=== PATIENT | female | born 1970 | race Caucasian/White ===

== ENCOUNTER → 2017-07-31 16:44 | Outpatient (CLI) | payer MEDICAID ==
[2014-04-26 19:59] VITALS: BMI 29.8
[~2017-07-31 16:44] MED LIST: ESTRACE1 MG PO; IPRAT-ALBUT 0.5-3 ML UPD; MEDROL DOSE PACK4 MG PO; PEPCID40 MG PO; PROVENTIL HFA6.7 GM INH; XANAX0.5 MG PO; ZPAK PO
== END | disposition home or self-care (01) ==
LOC: D.MAMMO 14:00
DX: N64.4 Mastodynia (principal)

== ENCOUNTER 2017-10-19 22:02 | Observation (INO) | payer OTHER ==
[~2017-10-19] VITALS: Ht 170.2 cm; Wt 91.3 kg
[2017-10-19 22:42] LABS: BASOPHILS 0.6 % (0-2); EOSINOPHILS 4.2 % (0-7); HEMATOCRIT 36.9 % (36.0-48.0); HEMOGLOBIN 12.6 g/dL (12-16); IMMATURE GRANULOCYTES 0.1 % (0-5); LYMPHOCYTES 54.3 % (15-50); MCH 29.9 pg (26.0-34.0); MCHC 34.1 g/dL (31.0-37.0); MCV 87.4 fL (80.0-100.0); MEAN PLATELET VOLUME 9.9 fL (7.4-10.4); NEUTROPHILS 33.8 % (40-80); PLATELET COUNT 294 10x3/uL (130-400); RBC 4.22 10x6/uL (4.00-5.40); RDW 12.7 % (11.5-14.5); WBC 9.4 10x3/uL (4.8-10.8)
[2017-10-19 22:52] LABS: ALBUMIN 3.7 g/dL (3.4-5.0); ANION GAP 13.5 mmol/L (8-16); BILIRUBIN - TOTAL 0.26 mg/dL (0.2-1.3); CALCIUM 8.8 mg/dL (8.5-10.1); CARBON DIOXIDE 26.8 mmol/L (21.0-32.0); CREATININE - SERUM 0.9 mg/dL (0.6-1.3); POTASSIUM - SERUM 3.3 mmol/L (3.5-5.1); PROTEIN - SERUM 7.1 g/dL (6.4-8.2)
[2017-10-20 00:27] LABS: TROPONIN-I 0.018 ng/mL (0.000-0.060)
[2017-10-20] MEDS ORDERED: ASPIRIN325 MG PO (01:57)
[2017-10-20] MEDS ORDERED: FISH OIL 1,0001 CA1 PO (01:57)
[2017-10-20] MEDS ORDERED: MULTIPLE VITAMI1 TA1 PO (01:57)
[2017-10-20 02:06] VITALS: BP 147/77; Ht 170.2 cm; Wt 91.3 kg
[2017-10-20 04:30] VITALS: BP 117/58
[2017-10-20 07:13] LABS: CKMB 1.7 U/L (0.0-3.6); CREATINE KINASE 74 UL (21-215); TROPONIN-I < 0.017 ng/mL (0.000-0.060)
[2017-10-20 08:59] VITALS: BP 138/78
[2017-10-20] MEDS ORDERED: COZAAR25 MG PO (10:19)
[2017-10-20 10:53] LABS: CKMB 1.5 U/L (0.0-3.6); CREATINE KINASE 82 UL (21-215); TROPONIN-I < 0.017 ng/mL (0.000-0.060)
== END 2017-10-20 11:06 | disposition home or self-care (01) ==
LOC: D.ER 22:02 → D.M2 10-20 00:49 → OBSVTIME 10-20 00:49 → D.EDHOLD 10-20 00:49 → D.M2 10-20 00:56
PROVIDERS: Emergency Medicine
DX: I10 Essential (primary) hypertension (principal); Z86.73 Personal history of transient ischemic attack (TIA), and cerebral infarction without residual deficits; J45.909 Unspecified asthma, uncomplicated; E78.5 Hyperlipidemia, unspecified; R51 Headache; Z87.891 Personal history of nicotine dependence

== ENCOUNTER 2018-01-15 12:42 | Emergency (ER) | payer OTHER ==
[~2018-01-15] VITALS: Ht 170.2 cm; Wt 90.9 kg
[~2018-01-15 12:42] MED LIST changes: +ASPIRIN325 MG PO; +COZAAR25 MG PO; +FISH OIL 1,0001 CA1 PO; +MULTIPLE VITAMI1 TA1 PO
[2018-01-15 13:03] VITALS: Ht 170.2 cm; Wt 90.9 kg
[2018-01-15] MEDS ORDERED: ATIVAN0.5 MG PO (13:06)
[2018-01-15] MEDS ORDERED: CATAPRES0.1 MG PO (13:07)
[2018-01-15 13:51] LABS: HEMOGLOBIN 12.6 g/dL (12-16); MCH 29.6 pg (26.0-34.0); MCHC 34.1 g/dL (31.0-37.0); MCV 87.1 fL (80.0-100.0); MEAN PLATELET VOLUME 9.9 fL (7.4-10.4); PLATELET COUNT 305 10x3/uL (130-400); RBC 4.25 10x6/uL (4.00-5.40); WBC 8.8 10x3/uL (4.8-10.8)
[2018-01-15 14:03] LABS: APPEARANCE CLEAR (CLEAR); BILIRUBIN NEGATIVE (NEGATIVE); COLOR STRAW (YELLOW); GLUCOSE NEGATIVE (NEGATIVE); KETONE NEGATIVE (NEGATIVE); NITRITE NEGATIVE (NEGATIVE); PROTEIN NEGATIVE (NEGATIVE); UROBILINOGEN NORMAL (NORMAL)
[2018-01-15 14:21] LABS: LYMPHOCYTES 17 % (15-50); MONOCYTES 6 % (2-11); NEUTROPHILS 43 % (40-80); PLATELET ESTIMATE NORMAL
[2018-01-15 14:53] LABS: ALBUMIN 3.6 g/dL (3.4-5.0); ALKALINE PHOSPHATASE 89 U/L (46-116); ALT (SGPT) 31 U/L (10-68); AMYLASE - SERUM 42 U/L (25-115); CALC OSMOLALITY 276 mosm/kg (275-300); CALCIUM 9.2 mg/dL (8.5-10.1); CARBON DIOXIDE 26.5 mmol/L (21.0-32.0); CHLORIDE - SERUM 105 mmol/L (98-107); CREATININE - SERUM 0.8 mg/dL (0.6-1.3); GLUCOSE 88 mg/dL (74-106); LIPASE 110 U/L (73-393); POTASSIUM - SERUM 3.7 mmol/L (3.5-5.1); PROTEIN - SERUM 7.1 g/dL (6.4-8.2); SODIUM 140 mmol/L (136-145); UREA NITROGEN 11 mg/dL (7-18); eGFR NON AFRICAN AMERICAN 81 mL/min (90-120)
[2018-01-15] MEDS ORDERED: ROBAXIN500 MG PO (18:19)
[2018-01-15] MEDS ORDERED: PHENERGAN6.25 MG/5 PO (18:20)
[2018-01-15 19:03] VITALS: BP 126/84
== END 2018-01-15 18:53 | disposition home or self-care (01) ==
LOC: D.ER 12:42
PROVIDERS: Family Medicine
DX: R10.9 Unspecified abdominal pain (principal); R19.4 Change in bowel habit; R11.0 Nausea

== ENCOUNTER 2018-01-31 18:20 | Observation (INO) | payer OTHER ==
[~2018-01-31] VITALS: Ht 170.2 cm; Wt 92.7 kg
--- NOTE | ~2018-01-31 | OP ---
PATIENT NAME: GALILEO PAYNE MEDICAL RECORD: [id number] :[birth year] LOCATION:D.M2 D.2122 ADMISSION DATE:01/31/18 SURGEON: REJI HINDS MD DATE OF OPERATION: 02/01/2018 PROCEDURES: 1. Left heart catheterization. 2. Selective coronary angiography. 3. Left ventriculogram. 4. Intravascular ultrasound. INDICATION: Angina and coronary artery disease. PROCEDURE IN DETAIL: After informed consent was obtained and after a detailed description of risks, benefits as well as alternative therapies, the patient elected to proceed with angiogram and heart catheterization. The right radial area was prepped and draped in normal sterile fashion. Right radial artery was cannulated via modified Seldinger technique with placement of 6-Lithuanian sheath. All catheters exchanged through this sheath. FINDINGS: The left ventriculogram was performed in standard 30-degree BEASLEY view, reveals good cardiac wall motion throughout all segments. Overall ejection fraction estimated 60%. SELECTIVE CORONARY ANGIOGRAPHY: 1. Left main showed no significant angiographic disease. 2. Left anterior descending has an area of mild stenosis in the mid vessel; however, intravascular ultrasound reveals this is no greater than 30%. 3. Left circumflex has moderate irregularities, but no flow-limiting stenosis. 4. Right coronary has moderate irregularities, but no flow-limiting stenosis. OVERALL IMPRESSION: Minimal coronary artery disease is present. No flow-limiting stenosis. Continue medical management of the coronary artery disease and cardiac risk factors. TRANSINT:[id number] Voice Confirmation ID: [id number] DOCUMENT ID: [id number] REJI HINDS MD at 1713 CC: [id number] DICTATION DATE: 02/01/18 1326 PULMONARY CARE NURSE: 02/01/18 1331 DIS IN 02/01/18 [address] [place] [address]
--- NOTE | ~2018-01-31 | MORECARE ---
CASE MANAGEMENT DISCHARGE SUMMARY PATIENT: GALILEO PAYNE UNIT: [id number] ADM DATE: 01/31/18 AGE: 47 : [birth year] SEX: F ROOM/BED: D.[facility] AUTHOR: SHASTA, INFORMATION ASSURANCE OFFICER PHYSICIAN: REFERRING PHYSICIAN: REJI HINDS MD DATE OF SERVICE: 01/31/18 Discharge Plan Patient Name: GALILEO PAYNE Facility: [facility]:[place] : 1970 Planned Disposition: Home Anticipated Discharge Date: 02/01/18 Discharge Date: Expected LOS: 1 Initial Reviewer: [email or web address] Initial Review Date: 02/01/2018 Generated: 02/01/18 6:32 pm Comments DCP- Discharge Planning Updated by [email or web address]: Cyrus Barksdale on 02/01/18 4:[address] Patient Name: GALILEO PAYNE Admission Status: ER Accout number: [id number] Admission Date: 01-31-2018 : 1970 Admission Diagnosis: Attending: ANITA HINDS Current LOS: 1 Anticipated DC Date: 02-01-2018 Planned Disposition: Home Primary Insurance: [facility] POS Discharge Planning Comments: * Is the patient Alert and Oriented? Yes 0 * How many steps to enterexit or inside your home? 4-5 0 * PCP DR. MAYEN 0 * Pharmacy [facility] [place] 0 * Preadmission Environment Home with Family 0 * ADLs Independent 0 * Equipment None 0 * Other Equipment NO MEDICAL EQUIPMENT PROVIDER PREFERENCE 0 * List name and contact numbers for known caregivers / representatives who currently or will assist patient after discharge: SANDEE SANDHU DTR, 0 * Verbal permission to speak to the caregivers and representatives has been obtained from the patient. N/A 0 * Community resources currently utilized None 0 * Please name any agencies selected above. NONE 0 * Additional services required to return to the preadmission environment? No 0 * Can the patient safely return to the preadmission environment? Yes 0 * Has this patient been hospitalized within the prior 30 days at any hospital? No 0 CM ADVISED BY OIL OPERATOR THAT PT HAS DISCHARGE ORDER, DROVE SELF TO HOSPITAL AND HAS NO MUSIC INSTRUCTOR TO DRIVE HOME AND CANNOT DRIVE FOR 24 HOURS. CM MET [facility] PT IN ROOM TO ASSIST WITH TRANSPORTATION HOME. PT REPORTS LIVING AT HOME WITH AN ADULT, PT HAS NO MEDICAL EQUIPMENT, NO NEEDS FOR DISCHARGE. PT REPORTS BEING INDEPENDENT IN HER CARE AT HOME. PT INFORMED CM THAT SHE WILL CALL SOMEONE ONCE SHE IS SOBER FROM THE [place] TO COME AND GET HER AND HER CAR. CM PROVIDED PT WITH CM CONTACT INFORMATION IF SHE NEEDED ANY ASSISTANCE. CM NOTIFIED FLOW COORIDINATOR NURSE. Import Export Manager: Cyrus Barksdale DCPIA - Discharge Planning Initial Assessment Updated by [email or web address]: Cyrus Barksdale on 02/01/18 5:27 pm * Is the patient Alert and Oriented? Yes * How many steps to enterexit or inside your home? 4-5 * PCP DR. MAYEN * Pharmacy [facility] [place] * Preadmission Environment Home with Family * ADLs Independent * Equipment None * Other Equipment NO MEDICAL EQUIPMENT PROVIDER PREFERENCE * List name and contact numbers for known caregivers / representatives who currently or will assist patient after discharge: SANDEE SANDHU, [place], * Verbal permission to speak to the caregivers and representatives has been obtained from the patient. N/A * Community resources currently utilized None * Please name any agencies selected above. NONE * Additional services required to return to the preadmission environment? No * Can the patient safely return to the preadmission environment? Yes * Has this patient been hospitalized within the prior 30 days at any hospital? No Patient Name: GALILEO PAYNE Page [id number] All edits/amendments must be made on the electronic document DICTATION DATE: 02/01/181730 BUSH REGENERATOR: 02/01/181730 RPT#: [id number] [place] DATE: STATUS: ADM IN [facility] [address] [place] [address] END OF REPORT
--- NOTE | ~2018-01-31 | HEMODYNAMI ---
PATIENT:GALILEO PAYNE MEDICAL RECORD: [id number] : 68 LOCATION:[facility].2122 ADMISSION DATE: 01/31/18 Generatedon:02/01/201813:37 Patient name: GALILEO PAYNE Patient #: [id number] SSN: D OB: 1970 Date of study: 02/01/2018 Page: Of Hemodynamic Procedure Report Patient Data Patient Demographics Procedure consent was obtained First Name: GALILEO Gender: Female Last Name: KERRY : 1970 Patient #: [id number] Age: 47 year(s) Race: Unknown Additional ID: [id number] Contact details [address]: [address] [place] [address] State: [place] City: [place] Zip code: [address] Admission Admission Data Admission Date: 01/31/2018 Admission Time: 22:27 Room #: 2122 Procedure Procedure Types Cath Procedure Diagnostic Procedure LHC LHC w/Coronaries FFR/IVUS Intra-Coronary IVUS Initial Procedure Description Procedure Date Procedure Date: 02/01/2018 Procedure Start Time: 13:13 Procedure End Time: 13:28 Procedure Staff Name Function Arlene Bradley RT Scrub Luis Collier RT Monitor Nehemiah Wahl RN Nurse Edward Mensah MD Performing Physician Procedure Data Cath Procedure Fluoroscopy Diagnostic fluoroscopy Total fluoroscopy Time: 3.6 time: 3.6 min min Diagnostic fluoroscopy Total fluoroscopy dose: 230 dose: 230 mGy mGy Contrast Material Contrast Material Type Amount (ml) Isovue 300 78 Entry Location Entry Primary Successful Side Size Upsize Upsize Entry Closure Mittal ccessful Closure Location (Fr) 1 (Fr) 2 (Fr) Remarks Device Remarks Radial Right 6 Fr Mechanical artery Short Compression Estimated blood loss: 10 ml Diagnostic catheters Device Type Used For End Catheter Placement DIAGNOSTIC Granby 110cm 5 Procedure Fr catheter ([id number]) Procedure Complications No complications Procedure Medications Medication Administration Route Dosage Oxygen etCO2 Nasal cannula 2 l/min Heparin Flush Bag added to field 2 bags (1000units/500ml NS) 0.9% NaCl I.V. 100 ml/hr Radial Cocktail added to field 1 syringe (Verapomil 2mg/Nitro 400mcg/Heparin 1500units) Fentanyl I.V. 50 mcg Versed I.V. 1 mg Fentanyl I.V. 50 mcg Versed I.V. 1 mg Fentanyl I.V. 50 mcg Versed I.V. 1 mg Radial Cocktail I.A. 1 syringe (Verapomil 2mg/Nitro 400mcg/Heparin 1500units) Hemodynamics Rest Heart Rate: 53 (bpm) Pressure Samples Time Site Value (mmHg) Purpose Heart Use Rate(bpm) 13:16 AO 128/80(102) Snapshot 85 Snapshots Pre Cath Intra NCS Post Cath Vital Signs Time Heart Resp SPO2 etCO2 NIBP (mmHg) Rhythm Pain Sedation Rate (ipm) (%) (mmHg) Status Level (bpm) 12:55:09 50 17 0 147/81(100) NSR 0 (11) 10(A) , No pain 12:59:29 54 16 0 125/79(111) NSR 0 (11) 10(A) , No pain 13:03:39 54 16 0 142/82(105) NSR 0 (11) 10(A) , No pain 13:07:53 63 17 92 31.5 135/74(125) NSR 0 (11) 10(A) , No pain 13:12:52 64 17 90 36.8 Measuring NSR 0 (11) 10(A) , No pain 13:13:06 61 17 92 24.7 119/67(89) NSR 0 (11) 10(A) , No pain 13:17:16 81 16 87 38.3 124/78(111) NSR 0 (11) 9(A) , No pain 13:21:26 77 16 93 23.2 131/82(112) NSR 0 (11) 9(A) , No pain 13:25:38 71 17 95 38.3 117/75(104) NSR 0 (11) 9(A) , No pain Medications Time Medication Route Dose Verified Delivered Reason Notes Effectiveness by by 13:06:58 Oxygen etCO2 2 l/min Edward Cerna Per Nasal Makenna Wahl RN physician cannula 13:07:08 Heparin Flush added 2 bags Edward Nehemiah used for Bag to Makenna Wahl RN procedure (1000units/500ml field NS) 13:07:16 0.9% NaCl I.V. 100 Edward Cerna Per ml/hr Makenna Wahl RN physician 13:07:25 Radial Cocktail added 1 Edward Cerna used for (Verapomil to syringe Makenna Wahl RN procedure 2mg/Nitro field 400mcg/Hepari 13:09:22 Fentanyl I.V. 50 mcg Edward Cerna for sedation Makenna Wahl RN 13:09:28 Versed I.V. 1 mg Edwardmagy Edwardsy for sedation Makenna Wahl RN 13:11:15 Fentanyl I.V. 50 mcg Edward Cerna for sedation Makenna Wahl RN 13:11:20 Versed I.V. 1 mg Edward Nehemiah for sedation Makenna Wahl RN 13:14:06 Fentanyl I.V. 50 mcg Edward Cerna for sedation Makenna Wahl RN 13:14:11 Versed I.V. 1 mg Edward Edwardsy for sedation Makenna Wahl RN 13:14:19 Radial Cocktail I.A. 1 Edward Edward for (Verapomil syringe Makenna Mensah MD vasodilation 2mg/Nitro 400mcg/Hepari Procedure Log Time Note 12:57:21 H&P Date Dictated: 01/31/2018 Within 30 days and on chart.. 12:30:30 Arlene Counts RT(R) sent for patient. Start room use. 12:31:31 Time tracking: Regular hours (M-F 7:00 - 5:00) 12:31:35 Plan of Care:Hemodynamics will remain stable., Cardiac rhythm will remain stable., Comfort level will be maintained., Respiratory function will remain adequate., Patient/ family verbilizes understanding of procedure., Procedure tolerated without complication., Recovers from procedure without complications.. 12:53:47 Patient received from Pre/Post Procedure Room to CCL 3 Alert and oriented. Tansferred to table in Supine position. 12:53:48 Correct patient and procedure confirmed by team. 12:53:48 Warm blankets applied, and kanu hugger turned on for patient comfort. 12:53:50 ECG and BP/O2 sat monitors applied to patient. 12:53:50 Signed procedure consent form obtained from patient. 12:53:51 Full Disclosure recording started 12:53:56 Vital chart was started 12:57:00 Baseline sample Acquired. 12:57:05 Rhythm: sinus bradycardia 12:57:29 Pre-procedure instructions explained to patient. 12:57:30 Pre-op teaching completed and patient verbalized understanding. 12:57:33 Family in patients room. 12:57:35 Patient NPO since Midnight. 12:57:39 Patient NPO since Midnight. 12:57:41 Is the patient allergic to Iodine/contrast media? No. 12:57:44 Is patient on blood thinner?Yes 12:59:50 Patient diabetic? No. 12:59:54 Patient not . Patient has had hysterectomy. 12:59:56 Previous problem with sedation/anesthesia? No ? 12:59:58 Snore? Yes 13:00:00 Sleep apnea? No 13:00:01 Opens mouth fully? Yes 13:00:01 Deviated septum? No 13:00:02 Sticks out tongue? Yes 13:00:09 Airway obstruction? Yes Asthma 13:00:17 Dentures? Yes IN 13:00:19 Pre procedure: right dorsailis pedis pulse 1+ Palpable, but thready & weak; easily obliterated 13:00:22 Modified Rubens's test Ulnar < 7 seconds 13:00:23 Patient pain scale 0/10 ?. 13:00:47 Lab results completed and on chart. 13:00:56 IV left wrist D/C'd due to infiltration. 13:06:58 Oxygen 2 l/min etCO2 Nasal cannula was administered by Nehemiah Wahl RN; Per physician; 13:07:08 Heparin Flush Bag (1000units/500ml NS) 2 bags added to field was administered by Nehemiah Wahl RN; used for procedure; 13:07:16 0.9% NaCl 100 ml/hr I.V. was administered by Nehemiah Wahl RN; Per physician; 13:07:25 Radial Cocktail (Verapomil 2mg/Nitro 400mcg/Heparin 1500units) 1 syringe added to field was administered by Nehemiah Wahl RN; used for procedure; 13:08:17 IV started by Nehemiah Wahl RN inright forearm with a 22 gauge IV catheter with 0.9% NaCl at O. 13:08:22 Right Radial & Right Groin area was prepped with chlora-prep and draped in sterile fashion 13:: Sharps counted by scrub and verified by R.N. :: Alarms reviewed by R. N. ::59 Final Timeout: patient, procedure, and site verified with staff and physician. All members of the team are in agreement. ::59 --------ALL STOP TIME OUT------ 13:09:01 Right Radial & Right Groin site verified by team. 13:09:05 Physical assessment completed. ASA score P 2 - A patient with mild systemic disease as per Edward Mensah MD. 13:: Sedation plan: IV Moderate Sedation Medication:Versed, Fentanyl 13::22 Fentanyl 50 mcg I.V. was administered by Nehemiah Wahl RN; for sedation; 13::28 Versed 1 mg I.V. was administered by Nehemiah Wahl RN; for sedation; 13:10:49 Zero performed for pressure channel P1 13:11:02 Use device set Radial Dx or PCI 13:11:04 Tegaderm 4 x 4 (1626W) opened to sterile field. 13:11:05 ACIST Manifold (36741) opened to sterile field. 13:11:06 ACIST Hand Control (24867) opened to sterile field. 13:11:07 Medline Cath Pack ([id number]) opened to sterile field. 13:11:07 ACIST Syringe (43667) opened to sterile field. 13:11:08 DIAGNOSTIC WIRE .035 260cm J wire (805128) opened to sterile field. 13:11:08 Bag Decanter (2002S) opened to sterile field. 13:11:14 SHEATH 6Fr Prelude Radial ([id number]) opened to sterile field. 13:11:15 Fentanyl 50 mcg I.V. was administered by Nehemiah Wahl RN; for sedation; 13:11:20 Versed 1 mg I.V. was administered by Nehemiah Wahl RN; for sedation; 13:13:16 Procedure started. 13:13:21 Local anesthetic to right radial artery with Lidocaine 2% by Edward Mensah MD.INITIAL ACCESS ONLY 13:13:45 A 6 Fr Short sheath was inserted into the Right Radial artery 13:14:06 Fentanyl 50 mcg I.V. was administered by Nehemiah Wahl RN; for sedation; 13:14:11 Versed 1 mg I.V. was administered by Nehemiah Wahl RN; for sedation; 13:14:19 Radial Cocktail (Verapomil 2mg/Nitro 400mcg/Heparin 1500units) 1 syringe I.A. was administered by Edward Mensah MD; for vasodilation; 13:14:30 A DIAGNOSTIC Granby 110cm 5 Fr catheter (229889) was advanced over the wire and used for Procedure. 13:15:00 LV angiography performed. 13:15:12 LV gram done using BEASLEY 13:15:17 EF : 55 % 13:15:18 LV hemodynamics recorded. 13:15:23 Injector settings: Ml/sec: 7, Volume: 15, 13:15:47 LCA angiography performed. 13:16:50 RCA angiography performed. 13:18:24 Catheter exchanged over wire. 13:18:27 Use device set [facility] PCI 13:18:39 GUIDE 6FR EBU 3.5 catheter ([id number]) opened to sterile field. 13:18:43 CHOICE PT Extra Support 182cm wire ([id number]) opened to sterile field. 13:18:46 INFLATOR Merit BasixCompak (GG3871) opened to sterile field. 13:18:55 Payne [place] Eagleye IVUS Catheter (24280Y) opened to sterile field. 13:19:11 6 Fr EBU 3.5 guide catheter was inserted over the wire 13:19:23 Choice PT XS wire advanced. 13:20:20 Wire advanced across lesion. 13:20:35 IVUS catheter advanced over wire. 13:21:19 IVUS pass to LAD lesion performed. 13:21:32 IVUS catheter removed over wire. 13:24:05 Wire removed. 13:24:06 Guide catheter removed. 13:24:19 TR BAND Standard ([id number]) opened to sterile field. 13:24:30 Sheath removed intact; hemostasis achieved with Mechanical Compression to the Right Radial artery. 13:24:32 Procedure ended.(Physican Out) 13:25:12 Fluoroscopy time 03.60 minutes. 13:25:18 Flurop Dose total: 230 13:25:18 Fluoroscopy dose: 230 mGy 13:25:22 Contrast amount:Isovue 300 78ml. 13:25:24 Sharps counted by scrub and verified by R.N. 13:25:27 TR band inflated with 10cc of air. 13:25:29 Insertion/operative site no bleeding no hematoma. 13:25:30 Post Procedure Pulses reassessed and unchanged 13:25:37 Post-procedure physical assessment completed. ASA score P 2 - A patient with mild systemic disease as per Edward Mensah MD. 13:25:45 Post procedure rhythm: unchanged. 13:25:48 Estimated blood loss: 10 ml 13:25:50 Post procedure instruction explained to patient.Patient verbalizes understanding. 13:25:51 Patient needs reinforcement of post procedure teaching. 13:25:59 Procedure type changed to Cath procedure, Diagnostic procedure, LHC, LHC w/Coronaries, FFR/IVUS, Intra-Coronary IVUS Initial 13:26:05 Procedure Complication : No complications 13:27:47 IV CATHETER 22g opened to sterile field. 13:27:55 Procedure and supply charges have been captured, reviewed, submitted and are correct. 13:27:56 Vital chart was stopped 13:28:00 See physician's report for complete and final results. 13:28:15 Report given to Pre/Post Procedure Room. 13:28:25 Patient transfered to Pre/Post Procedure Room with Stretcher. 13:28:36 Full Disclosure recording stopped 13:28:36 Procedure ended. 13:29:27 End room use (Document Last) Device Usage Item Name Manufacture Quantity Catalog Number Hospital Part Current M inimal Lot# / Charge Number Stock Stock Serial# Code Tegaderm 4 x 4 3M 1 [id number] [id number] 5 (1626W) ACIST Manifold Acist 1 85977 323227 580866 205605 5 (09360) Medical Systems Inc ACIST Hand Acist 1 49350 891245 896723 695195 5 Control (57954) [employer] Inc ACIST Syringe Acist 1 74910 975453 507212 594290 2 0 (78718) Medical Systems Inc Medline Cath Cardinal 1 [id number] 590610 83933 020849 5 [facility] ([id number]) Bag Decanter Microtek 1 2001S 569720 80157 607605 5 () Medical Inc. DIAGNOSTIC WIRE St Fernando 1 388050 895814 234790 964376 3 0 .035 260cm J wire (078991) SHEATH 6Fr Merit 1 [id number] 881178 755450 670498 5 Prelude Radial Medical ([id number]) GUIDE 6FR EBU Medtronic 1 [id number] 240043 26658 493509 3 3.5 catheter ([id number]) CHOICE PT Extra [place] 1 [id number] 056620 066980 903621 5 Support 182cm Scientific wire ([id number]) INFLATOR Merit Merit 1 [id number] 920288 364152 180867 1 5 [employer] Medical (AS5707) Payne Payne 1 [id number] 630550 944150 910236 8 [place] Eagleye IVUS Catheter (55825I) TR BAND Terumo 1 [id number] 100830 063454 143100 4 0 Standard ([id number]) IV CATHETER 22g B. Manrique 1 [id number] 677392 833717 711918 5 DIAGNOSTIC Terumo 1 40-6750 703490 684073 701469 5 Granby 110cm 5 Fr catheter (469536) Signature Audit [place] Stage Time Signature Unsigned Intra-Procedure 02/01/2018 Luis Collier RT(R) 1:30:09 PM RT(R) 02/01/2018 1:35:02 PM Intra-Procedure 02/01/2018 Luis Collier 1:37:37 PM RT(R) Signatures Monitor : Luis Collier RT Signature : Date : Time : [facility] [address] [place] [address]
--- NOTE | ~2018-01-31 | CN ---
PATIENT NAME:GALILEO PAYNE MEDICAL RECORD: [id number] : 68 LOCATION:. D.2122 ADMIT DATE: 01/31/18 ACCOUNT: [id number] CONSULTING PHYSICIAN: REJI HINDS MD REFERRING PHYSICIAN: REJI HINDS MD DATE OF CONSULTATION: 02/01/2018 CARDIOLOGY CONSULTATION DATE OF SERVICE: 02/01/2018 DIAGNOSES: 1. Chest pain. 2. Abnormal ECG. 3. Smoking history. 4. Chronic obstructive pulmonary disease. 5. Hyperlipidemia. 6. Hypertension. 7. Bradycardia. HISTORY OF PRESENT ILLNESS: Mrs. Payne presents with chest pressure for the past 2 weeks. She has multiple episodes of chest pressure every day. This has been getting more frequent and more severe in an unstable fashion. Her EKG has T-wave inversions and is significantly bradycardic in the 40s. She is on clonidine as needed. No other AV blocking medication. She is on pravastatin for hyperlipidemia. REVIEW OF SYSTEMS: The patient reports easy bruising but reports no swollen glands. The patient reports no fever, no night sweats, no significant weight gain, no significant weight loss. No significant exercise tolerance. The patient reports no dry eyes, no irritation, no vision change. Patient reports no difficulty hearing and no ear pain. Patient reports no frequent nose bleeds or nose and sinus problems. Patient reports on arm pain on exertion. No shortness of breath while lying down. No history of heart murmur. Patient reports no cough, no wheezing or coughing up blood. Patient reports no abdominal pain, no vomiting. Normal appetite. No diarrhea and not vomiting blood. No nausea and no constipation. Patient reports no incontinence. No difficulty urinating. No hematuria. No increased frequency. Patient reports no muscle aches. No weakness, no arthralgias, no back pain. No swelling of the extremities. Patient reports no abnormal mole, no jaundice, no rashes. Reports no loss of consciousness. No weakness and no numbness. No seizures, dizziness, or headaches. The patient reports no depression, no sleep disturbance, feeling safe in a relationship and no alcohol abuse. Patient reports on fatigue. Reports no runny nose or sinus pressure. No itching, no hives, and no frequent sneezing. PHYSICAL EXAMINATION: GENERAL APPEARANCE: Well-nourished, well-developed, appears stated age. Level of distress, comfortable. PSYCHIATRIC: Mental status, alert, normal affect. Orientation, oriented to time, place and person. EYES: Lids and conjunctiva, noninjected. No discharge, no pallor. ENT: Lips, teeth, gums, normal dentition. Oropharynx, no cyanosis, no pallor. NECK: Carotid arteries, bilateral normal upstroke, no bruits, no thrills. JUGULAR VEINS: No jugular venous pressure or distention. CONSULT REPORT [id number] GALILEO PAYNE CERVICAL LYMPH NODES: Nontender, nonenlarged. THYROID: Not enlarged. Nontender. No nodules. LUNGS: Respiratory effort, unlabored. CHEST: Normal curvature. No thoracic deformity. No chest wall tenderness. Percussion, resonant. Auscultation, clear. No wheezes, no rales, no rhonchi. CARDIOVASCULAR: Precordial exam, nondisplaced. No heaves or pericardial thrills. Rate and rhythm, regular. Heart sounds, normal S1, normal S2. No S3, no gallop, no rub. Systolic murmur, not heard. Diastolic murmur, not heard. EXTREMITIES: No cyanosis, no edema. Peripheral pulses, full and equal in all extremities, except as noted. No bruits appreciated. ABDOMEN: Soft, nondistended. Normal aorta. No bruit. Nontender. No masses. Liver, nontender, no hepatomegaly. Spleen, nontender, no splenomegaly. MUSCULOSKELETAL: No joint tenderness. No joint swelling. No erythema. NEUROLOGICAL: Normal gait, normal strength, normal tone. SKIN: Warm and dry. OVERALL IMPRESSION: Chest pain compatible with angina, abnormal ECG, most likely she has hemodynamically significant coronary artery disease. We will proceed with coronary angiography. Further care depends upon findings of the angiography. TRANSINT:[id number] Voice Confirmation ID: [id number] DOCUMENT ID: [id number] REJI HINDS MD at 1713 CC: [id number] DICTATION DATE: 02/01/18820 FLOWER MAKER: 02/01/18 09 DIS IN 02/01/18 [address] [place] [address]
[~2018-01-31 18:20] MED LIST changes: +ATIVAN0.5 MG PO; +CATAPRES0.1 MG PO; +PHENERGAN6.25 MG/5 PO; +ROBAXIN500 MG PO
[2018-01-31 19:38] LABS: ALBUMIN 3.9 g/dL (3.4-5.0); ALKALINE PHOSPHATASE 80 U/L (46-116); ALT (SGPT) 37 U/L (10-68); BILIRUBIN - TOTAL 0.24 mg/dL (0.2-1.3); CALC OSMOLALITY 280 mosm/kg (275-300); CARBON DIOXIDE 28.1 mmol/L (21.0-32.0); CHLORIDE - SERUM 104 mmol/L (98-107); CREATININE - SERUM 0.9 mg/dL (0.6-1.3); GLUCOSE 111 mg/dL (74-106); POTASSIUM - SERUM 3.4 mmol/L (3.5-5.1); PROTEIN - SERUM 7.1 g/dL (6.4-8.2); SODIUM 140 mmol/L (136-145); UREA NITROGEN 15 mg/dL (7-18); eGFR NON AFRICAN AMERICAN 71 mL/min (90-120)
[2018-01-31 20:01] LABS: CKMB 1.8 U/L (0.0-3.6); CREATINE KINASE 84 UL (21-215); PRO BNP 76 pg/mL (0-125)
[2018-01-31 20:05] LABS: THYROID STIMULATING HORMONE 2.79 uIU/mL (0.36-3.74)
[2018-01-31 20:13] LABS: BASOPHILS 0.7 % (0-2); HEMATOCRIT 36.2 % (36.0-48.0); HEMOGLOBIN 12.3 g/dL (12-16); IMMATURE GRANULOCYTES 0.1 % (0-5); LYMPHOCYTES 54.2 % (15-50); MCH 29.6 pg (26.0-34.0); MEAN PLATELET VOLUME 9.7 fL (7.4-10.4); MONOCYTES 6.3 % (2-11); NEUTROPHILS 34.7 % (40-80); PLATELET COUNT 264 10x3/uL (130-400); RBC 4.16 10x6/uL (4.00-5.40); RDW 13.3 % (11.5-14.5); WBC 8.5 10x3/uL (4.8-10.8)
[2018-01-31 20:15] VITALS: BP 160/86
[2018-01-31 21:00] VITALS: BP 137/65
[2018-01-31 22:00] VITALS: BP 138/83
[2018-01-31] MEDS ORDERED: PRAVACHOL20 MG PO (23:34)
[2018-02-01 00:49] VITALS: BP 142/79; Ht 170.2 cm; Wt 92.7 kg
[2018-02-01 04:00] VITALS: BP 144/70
[2018-02-01 06:40] LABS: BASOPHILS 0.6 % (0-2); CALC OSMOLALITY 279 mosm/kg (275-300); CALCIUM 9.1 mg/dL (8.5-10.1); CARBON DIOXIDE 25.8 mmol/L (21.0-32.0); CHLORIDE - SERUM 105 mmol/L (98-107); CREATININE - SERUM 0.7 mg/dL (0.6-1.3); EOSINOPHILS 3.9 % (0-7); GLUCOSE 114 mg/dL (74-106); HEMATOCRIT 36.2 % (36.0-48.0); HEMOGLOBIN 12.4 g/dL (12-16); IMMATURE GRANULOCYTES 0.1 % (0-5); LYMPHOCYTES 51.4 % (15-50); MCH 29.8 pg (26.0-34.0); MCHC 34.3 g/dL (31.0-37.0); MEAN PLATELET VOLUME 10.2 fL (7.4-10.4); MONOCYTES 6.5 % (2-11); NEUTROPHILS 37.5 % (40-80); PLATELET COUNT 254 10x3/uL (130-400); RBC 4.16 10x6/uL (4.00-5.40); RDW 13.1 % (11.5-14.5); SODIUM 139 mmol/L (136-145); UREA NITROGEN 16 mg/dL (7-18); WBC 7.9 10x3/uL (4.8-10.8); eGFR NON AFRICAN AMERICAN > 90 mL/min (90-120)
[2018-02-01 06:44] LABS: POTASSIUM - SERUM 4.2 mmol/L (3.5-5.1)
[2018-02-01 07:43] VITALS: BP 132/60
[2018-02-01 11:40] VITALS: BP 128/66
[2018-02-01] MEDS ORDERED: ISOSORBIDE MONO30 M1 PO (15:52)
[2018-02-01 15:53] VITALS: BP 138/71
== END 2018-02-01 19:52 | disposition home or self-care (01) ==
LOC: D.ER 18:20 → D.M2 22:27 → OBSVTIME 22:27 → D.M2 22:27
PROVIDERS: Emergency Medicine; Family Medicine
DX: I25.10 Atherosclerotic heart disease of native coronary artery without angina pectoris (principal); Z86.73 Personal history of transient ischemic attack (TIA), and cerebral infarction without residual deficits; R94.31 Abnormal electrocardiogram [ECG] [EKG]; J44.9 Chronic obstructive pulmonary disease, unspecified; I10 Essential (primary) hypertension; E78.5 Hyperlipidemia, unspecified

== ENCOUNTER → 2018-04-19 07:42 | Outpatient (CLI) | payer BC ==
[2018-02-01 00:49] VITALS: BMI 32.0
[~2018-04-19 07:42] MED LIST changes: +ISOSORBIDE MONO30 M1 PO; +PRAVACHOL20 MG PO
== END | disposition home or self-care (01) ==
LOC: D.MRI 07:42
DX: M25.511 Pain in right shoulder (principal)

== ENCOUNTER → 2018-08-21 18:29 | Outpatient (CLI) | payer MEDICAID ==
[2018-02-01 00:49] VITALS: BMI 32.0
[~2018-08-21 18:29] MED LIST changes: +CARDIZEM30 MG PO; +OMEPRAZOLE40 MG PO
== END | disposition home or self-care (01) ==
LOC: D.MAMMO 15:15
DX: Z12.31 Encounter for screening mammogram for malignant neoplasm of breast (principal)

== ENCOUNTER 2018-08-30 12:54 | Emergency (ER) | payer MEDICAID ==
[~2018-08-30] VITALS: Ht 170.2 cm; Wt 88.6 kg
[~2018-08-30 12:54] MED LIST changes: -CARDIZEM30 MG PO; -OMEPRAZOLE40 MG PO
[2018-08-30 13:06] VITALS: Ht 170.2 cm; Wt 88.6 kg
[2018-08-30] MEDS ORDERED: OMEPRAZOLE40 MG PO (13:09)
[2018-08-30] MEDS ORDERED: CARDIZEM30 MG PO (13:09)
[2018-08-30 14:02] VITALS: BP 137/63
== END 2018-08-30 14:03 | disposition home or self-care (01) ==
LOC: D.ER 12:54
DX: R00.2 Palpitations (principal); I49.3 Ventricular premature depolarization

== ENCOUNTER 2019-05-07 12:00 | Emergency (ER) | payer BC ==
[~2019-05-07] VITALS: Ht 170.2 cm; Wt 89.1 kg
[~2019-05-07 12:00] MED LIST changes: +CARDIZEM30 MG PO; +OMEPRAZOLE40 MG PO
[2019-05-07 12:04] VITALS: Ht 170.2 cm; Wt 89.1 kg
[2019-05-07 12:47] LABS: CALC OSMOLALITY 279 mosm/kg (275-300); CALCIUM 8.9 mg/dL (8.5-10.1); CARBON DIOXIDE 25.6 mmol/L (21.0-32.0); CHLORIDE - SERUM 106 mmol/L (98-107); CREATININE - SERUM 0.7 mg/dL (0.6-1.3); GLUCOSE 123 mg/dL (74-106); POTASSIUM - SERUM 3.5 mmol/L (3.5-5.1); SODIUM 141 mmol/L (136-145); UREA NITROGEN 8 mg/dL (7-18); eGFR NON AFRICAN AMERICAN > 90 mL/min (90-120)
[2019-05-07 12:50] LABS: BASOPHILS 0.7 % (0-2); EOSINOPHILS 3.4 % (0-7); HEMATOCRIT 38.3 % (36.0-48.0); HEMOGLOBIN 12.6 g/dL (12-16); IMMATURE GRANULOCYTES 0.1 % (0-5); LYMPHOCYTES 46.4 % (15-50); MCH 29.7 pg (26.0-34.0); MCHC 32.9 g/dL (31.0-37.0); MCV 90.3 fL (80.0-100.0); MEAN PLATELET VOLUME 10.2 fL (7.4-10.4); MONOCYTES 7.5 % (2-11); NEUTROPHILS 41.9 % (40-80); RBC 4.24 10x6/uL (4.00-5.40); RDW 12.7 % (11.5-14.5); WBC 8.2 10x3/uL (4.8-10.8)
[2019-05-07 13:03] LABS: INR 0.93 (0.85-1.17)
[2019-05-07 13:04] LABS: APTT 30.3 SECONDS (22.8-39.4)
[2019-05-07 13:06] LABS: ALBUMIN 3.7 g/dL (3.4-5.0); ALKALINE PHOSPHATASE 86 U/L (46-116); ALT (SGPT) 30 U/L (10-68); BILIRUBIN - TOTAL 0.26 mg/dL (0.2-1.3); CKMB 0.9 U/L (0.0-3.6); CREATINE KINASE 52 UL (21-215); MAGNESIUM - SERUM 2.2 mg/dL (1.8-2.4); PLATELET COUNT 318 10x3/uL (130-400); TROPONIN-I < 0.017 ng/mL (0.000-0.060)
[2019-05-07] MEDS ORDERED: VOLTAREN75 MG PO (14:03)
[2019-05-07 14:23] VITALS: BP 129/80
== END 2019-05-07 14:28 | disposition home or self-care (01) ==
LOC: D.ER 12:00
PROVIDERS: Emergency Medicine
DX: R07.89 Other chest pain (principal); I10 Essential (primary) hypertension; K21.9 Gastro-esophageal reflux disease without esophagitis

== ENCOUNTER → 2019-05-13 14:44 | Outpatient (CLI) | payer BC ==
[2019-05-07 12:04] VITALS: BMI 30.7
[~2019-05-13 14:44] MED LIST changes: +VOLTAREN75 MG PO
[2019-05-14 11:10] LABS: ANA REFLEX - DIRECT Negative (Negative)
[2019-05-15 20:07] LABS: ANGIOTENSIN CONVERTING ENZYME 37 U/L (14-82)
[2019-05-17 19:08] LABS: FUNGAL - ASP FLAVUS Negative (Neg:<1:1); FUNGAL - ASP NIGER Negative (Neg:<1:1); FUNGAL - ASPER FUMIGATUS Negative (Neg:<1:1)
== END | disposition home or self-care (01) ==
LOC: D.LABREF 14:44
PROVIDERS: ATTEND Internal Medicine Pulmonary Disease
DX: R91.8 Other nonspecific abnormal finding of lung field (principal)

== ENCOUNTER → 2019-11-18 09:55 | Outpatient (CLI) | payer BC ==
[2019-05-07 12:04] VITALS: BMI 30.7
== END | disposition home or self-care (01) ==
LOC: D.RT 09:55 → D.CT 11:00
PROVIDERS: ATTEND Internal Medicine Pulmonary Disease
DX: R91.8 Other nonspecific abnormal finding of lung field (principal); J44.9 Chronic obstructive pulmonary disease, unspecified

== ENCOUNTER → 2020-01-16 09:12 | Outpatient (CLI) | payer BC ==
[2019-05-07 12:04] VITALS: BMI 30.7
== END | disposition home or self-care (01) ==
LOC: D.MAMMO 01-01 10:00
PROVIDERS: ATTEND Clinical Nurse Specialist Adult Health
DX: Z12.31 Encounter for screening mammogram for malignant neoplasm of breast (principal)

== ENCOUNTER 2020-02-26 09:46 | Emergency (ER) | payer BC ==
[~2020-02-26] VITALS: Ht 170.2 cm; Wt 92.7 kg
[2020-02-26 10:04] VITALS: Ht 170.2 cm; Wt 92.7 kg
[2020-02-26] MEDS ORDERED: VIBRAMYCIN 100100 MG PO (10:33)
[2020-02-26] MEDS ORDERED: SINGULAIR10 MG PO (10:34)
[2020-02-26] MEDS ORDERED: PHENERGAN25 M1 PO (10:34)
[2020-02-26] MEDS ORDERED: ATARAX 25 MG TA25 MG PO (10:36)
[2020-02-26] MEDS ORDERED: SYMBICORT 80-10.2 GM INH (10:36)
[2020-02-26 10:42] LABS: CALC OSMOLALITY 282 mosm/kg (275-300); CALCIUM 9.2 mg/dL (8.5-10.1); CARBON DIOXIDE 26.1 mmol/L (21.0-32.0); CHLORIDE - SERUM 107 mmol/L (98-107); CREATININE - SERUM 0.9 mg/dL (0.6-1.3); GLUCOSE 115 mg/dL (74-106); POTASSIUM - SERUM 3.3 mmol/L (3.5-5.1); SODIUM 142 mmol/L (136-145); UREA NITROGEN 10 mg/dL (7-18); eGFR NON AFRICAN AMERICAN 70 mL/min (90-120)
[2020-02-26 10:46] LABS: BASOPHILS 0.9 % (0-2); EOSINOPHILS 3.2 % (0-7); HEMATOCRIT 37.4 % (36.0-48.0); HEMOGLOBIN 12.6 g/dL (12-16); IMMATURE GRANULOCYTES 0.1 % (0-5); LYMPHOCYTES 37.9 % (15-50); MCH 29.6 pg (26.0-34.0); MCHC 33.7 g/dL (31.0-37.0); MCV 87.8 fL (80.0-100.0); MEAN PLATELET VOLUME 9.9 fL (7.4-10.4); MONOCYTES 8.2 % (2-11); NEUTROPHILS 49.7 % (40-80); PLATELET COUNT 288 10x3/uL (130-400); RBC 4.26 10x6/uL (4.00-5.40); RDW 13.3 % (11.5-14.5); WBC 7.8 10x3/uL (4.8-10.8)
[2020-02-26 10:53] LABS: APTT 29.4 SECONDS (22.8-39.4); INR 0.97 (0.85-1.17); PROTIME 12.9 SECONDS (11.6-15.0)
[2020-02-26 11:00] LABS: ALBUMIN 3.8 g/dL (3.4-5.0); ALKALINE PHOSPHATASE 90 U/L (30-120); ALT (SGPT) 39 U/L (10-68); BILIRUBIN - TOTAL 0.26 mg/dL (0.2-1.3); CKMB 0.9 U/L (0.0-3.6); CREATINE KINASE 70 UL (21-215); PROTEIN - SERUM 7.1 g/dL (6.4-8.2); TROPONIN-I < 0.017 ng/mL (0.000-0.060)
[2020-02-26 13:50] VITALS: BP 138/77
== END 2020-02-26 13:54 | disposition left against medical advice (07) ==
LOC: D.ER 09:46
PROVIDERS: Emergency Medicine
DX: E87.6 Hypokalemia (principal); R07.9 Chest pain, unspecified; M54.2 Cervicalgia; I10 Essential (primary) hypertension; K21.9 Gastro-esophageal reflux disease without esophagitis; Z72.0 Tobacco use; R53.1 Weakness

== ENCOUNTER → 2020-09-18 10:41 | Outpatient (CLI) | payer BC ==
[2020-02-26 10:04] VITALS: BMI 32.0
[~2020-09-18 10:41] MED LIST changes: +ATARAX 25 MG TA25 MG PO; +PHENERGAN25 M1 PO; +SINGULAIR10 MG PO; +SYMBICORT 80-10.2 GM INH; +VIBRAMYCIN 100100 MG PO
== END | disposition home or self-care (01) ==
LOC: D.US 10:30 → D.HCCECHO 10:30
PROVIDERS: ATTEND Internal Medicine Cardiovascular Disease
DX: R06.00 Dyspnea, unspecified (principal)